=== PATIENT | female | born 1985 | race American Indian/Alaskan Native ===

== ENCOUNTER 2019-04-05 21:34 | Emergency (ER) | payer MEDICAID, OTHER ==
[2019-04-05 22:01] VITALS: BP 116/84
[2019-04-05] MEDS ORDERED: NORCO 7.5/325 PO ONE (23:19)
[2019-04-05] MEDS ORDERED: BICILLIN L-A IM ONE (23:19)
--- NOTE | 2019-04-05 23:22 | Emergency Department Report ---
Abscess Boil HPI - HPI Chief Complaint: Dental/Oral Stated Complaint: TOOTACHE Time Seen by Provider: 04/05/19 23:19 Duration: 4 Days Location: Other Severity: Mild History: Yes Pain, No Fever, No Purulent Drainage, No Numbness, No Foreign Body, No Previous History, No Insect Bite HPI: Patient comes to the ER complaining of dental pain. She has a left upper dental disease and a loose tooth. There is no abscess. ABCs intact. Controlling secretions. No abscess on exam. Vital signs stable and no fever. Home Medications: Previous Rx's Medication Instructions Recorded Last Taken Type Ibuprofen [Motrin 600 MG tab] 600 mg PO Q8H PRN #12 tablet 09/04/18 Unknown Rx Nystas/Diphen/Xyl Visc/Mylanta 15 ml MM Q4H PRN #100 ml 09/04/18 Unknown Rx [Magic Mouthwash] Penicillin V Potassium 500 mg PO BID #20 tablet 09/04/18 Unknown Rx Amoxicillin [Trimox CAP] 500 mg PO BID #20 capsule 04/05/19 Unknown Rx traMADol [Ultram] 50 mg PO Q6HR PRN #10 tablet 04/05/19 Unknown Rx Allergies/Adverse Reactions: Allergies Allergy/AdvReac Type Severity Reaction Status Date / Time No Known Allergies Allergy Verified 09/04/18 01:41 ED Review of Systems ROS: Stated complaint: TOOTACHE Other details as noted in HPI Comment: All other systems reviewed and negative ED Past Medical Hx - Past Medical History Previous Medical History?: Yes Hx Asthma: Yes - Surgical History Hx Cholecystectomy: Yes Additional Surgical History: - Family History Family history: no significant - Social History Smoking Status: Current Every Day Smoker Substance Use Type: None - Medications Home Medications: Home Medications Medication Instructions Recorded Confirmed Last Taken Type Ibuprofen [Motrin 600 MG tab] 600 mg PO Q8H PRN #12 tablet 09/04/18 Unknown Rx Nystas/Diphen/Xyl Visc/Mylanta 15 ml MM Q4H PRN #100 ml 09/04/18 Unknown Rx [Magic Mouthwash] Penicillin V Potassium 500 mg PO BID #20 tablet 09/04/18 Unknown Rx Amoxicillin [Trimox CAP] 500 mg PO BID #20 capsule 04/05/19 Unknown Rx traMADol [Ultram] 50 mg PO Q6HR PRN #10 tablet 04/05/19 Unknown Rx ED Abscess Boil Physical Exam - Exam General: Vital signs noted. No distress. Alert and acting appropriately. Exam: Yes Tenderness, Yes Normal Neurologic Exam, Yes Normal Circulation, No Fluctuance, No Surrounding Cellulites/Erythema, No Lymphangitis, No Crepitation, No Heart Murmur Exam: WDWN patient in NAD. VS per RN flow sheet. Alert and oriented to person, place and time. S1-S2. No S3 or S4. No systolic or diastolic murmur. No JVD. No pitting edema. Lungs clear to auscultation bilaterally anteriorly and posteriorly. Abdomen soft nontender bowel sounds X4. Moves all extremities well. Mood and affect appropriate. Pain involves dental area 10 through 12. Patient has a missing tooth and a loose tooth. No abscess. NO LUDWIGS. No trismus ED Course Vital Signs 04/05/19 21:58 Temperature 98.2 F Pulse Rate 95 H Respiratory 18 Rate Blood Pressure 116/84 O2 Sat by Pulse 99 Oximetry Critical care attestation.: If time is entered above; I have spent that time in minutes in the direct care of this critically ill patient, excluding procedure time. ED Medical Decision Making - Medical Decision Making SIMPLE DENTAL PAIN NO ABSCESS ABC INTACT TAKING PO VSS NO FEVER MEDICATED DC HOME WITH DMD FOLLOW UP Vital Signs 04/05/19 21:58 Temperature 98.2 F Pulse Rate 95 H Respiratory 18 Rate Blood Pressure 116/84 O2 Sat by Pulse 99 Oximetry ED Disposition Clinical Impression: Pain, dental Disposition: DC-01 TO HOME OR SELFCARE Is pt being admited?: No Does the pt Need Aspirin: No Condition: Stable Instructions: Dental Caries (ED), Toothache (ED) Additional Instructions: DIET TOLERATED MEDS ORDERED TODAY IN ER FOLLOW INSTRUCTIONS ON THE BOTTLE FOLLOW UP PCP WITHIN 48 HOURS TO ENSURE YOU ARE GETTING BETTER ACTIVITY TOLERATED MOTRIN OR TYLENOL FOR PAIN OR FEVER RETURN TO THE ER FOR WORSENING SYMPTOMS NOT RELIEVED BY YOUR MEDICATIONS. SEE DMD DRE Prescriptions: Amoxicillin [Trimox CAP] 500 mg PO BID #20 capsule traMADol [Ultram] 50 mg PO Q6HR PRN #10 tablet PRN Reason: Pain Referrals: [facility] [Outside[facility] - 3-5 Days [facility] [Outside] - 3-5 Days Time of Disposition: 23:21
== END 2019-04-06 01:09 | disposition home or self-care (01) ==
LOC: ED 21:34
DX: K08.89 Other specified disorders of teeth and supporting structures (principal); J45.909 Unspecified asthma, uncomplicated; F17.200 Nicotine dependence, unspecified, uncomplicated; Z90.49 Acquired absence of other specified parts of digestive tract; Z79.899 Other long term (current) drug therapy
CPT/HCPCS: 96372; 99282; J0561